=== PATIENT | male | born 1945 | race Two or more races ===

== ENCOUNTER 2017-07-21 13:26 | Emergency (ER) | payer OTHER ==
[~2017-07-21] VITALS: Ht 165.1 cm; Wt 63.5 kg
[~2017-07-21 13:26] MED LIST: COLACE100 MG ORAL; FEOSOL325 MG ORAL; LEVAQUIN500 MG ORAL; NIFEDICAL XL30 MG ORAL; PROTONIX40 MG ORAL; TRAMADOL HCL50 MG ORAL; UNOBMED
[2017-07-21 14:17] VITALS: BP 114/55
[2017-07-21 14:22] LABS: BASOPHILS % (AUTO) 0.7 % (0.0-2.0); EOSINOPHILS % (AUTO) 2.1 % (0.0-3.0); LYMPHOCYTES % (AUTO) 13.7 % (20.0-45.0); MEAN CORPUSCULAR HEMOGLOBIN 31.1 PG (27.0-31.0); MEAN CORPUSCULAR HGB CONC 31.3 G/DL (32.0-36.0); MEAN CORPUSCULAR VOLUME 100 FL (80-99); MONOCYTES % (AUTO) 6.1 % (1.0-10.0); NEUTROPHILS % (AUTO) 77.4 % (45.0-75.0); PLATELET COUNT 191 K/UL (150-450); RED BLOOD COUNT 4.44 M/UL (4.70-6.10); RED CELL DISTRIBUTION WIDTH 11.7 % (11.6-14.8); WHITE BLOOD COUNT 9.5 K/UL (4.8-10.8)
[2017-07-21 14:29] LABS: ANION GAP 12 mmol/L (5-15); CALCIUM 9.3 MG/DL (8.5-10.1); CARBON DIOXIDE 24 MMOL/L (21-32); CHLORIDE 106 MMOL/L (98-107); CREATININE 2.6 MG/DL (0.55-1.30); POTASSIUM 4.1 MMOL/L (3.5-5.1); SODIUM 142 MMOL/L (136-145)
[2017-07-21] MEDS ORDERED: PROTONIX40 M2 GT (14:40)
[2017-07-21] MEDS ORDERED: HYDROCHLOROTHIA25 MG ORAL (14:40)
[2017-07-21] MEDS ORDERED: MEGESTROL ACETA40 MG PO (14:40)
[2017-07-21] MEDS ORDERED: LISINOPRIL40 MG ORAL (14:40)
[2017-07-21] MEDS ORDERED: PLAVIX75 MG ORAL (14:40)
[2017-07-21] MEDS ORDERED: ATORVASTATIN CA40 MG ORAL (14:40)
[2017-07-21] MEDS ORDERED: NORVASC5 MG ORAL (14:40)
[2017-07-21 14:42] LABS: ALANINE AMINOTRANSFERASE 9 U/L (12-78); ALBUMIN/GLOBULIN RATIO 1.1 (1.0-2.7); ASPARTATE AMINO TRANSFERASE 17 U/L (15-37); CKMB 1.6 NG/ML (0.0-3.6); LIPASE 89 U/L (73-393); TOTAL PROTEIN 8.1 G/DL (6.4-8.2)
--- NOTE | 2017-07-21 15:27 | Emergency Room Report ---
History of Present Illness General Chief Complaint: Flu Like Symptoms Source: Patient Present Illness HPI 71-year-old male presents ED for evaluation. Patient states he is having cough and cold symptoms for the last 3 days. Also complaining of chest pain. Midsternal, 8/10, sharp, worse with coughing. Denies fevers or chills. Denies shortness of breath. Denies sick contacts or recent travel. No other aggravating relieving factors. 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 Hx Hypertension: Yes Hx Pacemaker: No Hx Asthma: No Hx COPD: No Hx Diabetes: No Hx Cancer: No Hx Gastrointestinal Problems: No Hx Dialysis: No Hx Neurological Problems: No Hx Cerebrovascular Accident: No Hx Seizures: No Hx Dizziness: Yes Review of Systems All Other Systems: negative except mentioned in HPI Physical Exam Vital Signs Date Time Temp Pulse Resp B/P (MAP) Pulse Ox O2 Delivery O2 Flow Rate FiO2 07/21/17 13:38 97.2 78 24 122/83 98 Room Air Sp02 EP Interpretation: reviewed, normal General Appearance: no apparent distress, alert, GCS 15, non-toxic Head: normocephalic, atraumatic Eyes: bilateral eye normal inspection, bilateral eye PERRL ENT: hearing grossly normal, normal pharynx, no angioedema, normal voice Neck: full range of motion, supple/symm/no masses Respiratory: chest non-tender, lungs clear, normal breath sounds, speaking full sentences Cardiovascular #1: regular rate, rhythm, no edema Cardiovascular #2: 2+ carotid (R), 2+ carotid (L), 2+ radial (R), 2+ radial (L) , 2+ dorsalis pedis (R), 2+ dorsalis pedis (L) Gastrointestinal: normal bowel sounds, non tender, soft, non-distended, no guarding, no rebound Rectal: deferred Genitourinary: normal inspection, no CVA tenderness Musculoskeletal: back normal, gait/station normal, normal range of motion, non- tender Neurologic: alert, oriented x3, responsive, motor strength/tone normal, sensory intact, speech normal Psychiatric: judgement/insight normal, memory normal, mood/affect normal, no suicidal/homicidal ideation Reflexes: 3+ bicep (R), 3+ bicep (L), 3+ tricep (R), 3+ tricep (L), 3+ knee (R) , 3+ knee (L) Skin: normal color, no rash, warm/dry, well hydrated Lymphatic: no adenopathy Medical Decision Making Diagnostic Impression: Primary Impression: Pneumonia Qualified Codes: J18.9 - Pneumonia, unspecified organism Additional Impressions: CKD (chronic kidney disease) Qualified Codes: N18.9 - Chronic kidney disease, unspecified ACS (acute coronary syndrome) ER Course Hospital Course 71-year-old M presenting to ED with cough, CP, chills Differential diagnoses include: Pneumonia, CHF exacerbation, pneumothorax, fluid overload Clinical course Patient placed on stretcher. On bleach packer with stable vitals. After initial history and physical, I ordered labs, IV fluids, EKG, chest x-ray, blood cultures, UA. Labs - no leukocytosis noted, hemoglobin/hematocrit stable, BUN/Cr elevated, lactate okay, troponins negative, BUN 1299, influenza negative CXR - hyperinflated lungs. atelectasis EKG - bifasciular block, no acute ischemic changes abx given. aspirin given Because of insurance patient will be transferred I feel this is a highly complex case requiring extensive working including EKG/ Rhythm strip, Xray/CT/US, Blood/urine lab work, repeat exams while in ED, and administration of strong opiates/narcotics for pain control, admission to hospital or close patient follow up. Diagnosis - pneumonia, CKD, ACS Transferred in serious condition Labs Test 07/21/17 14:00 White Blood Count 9.5 K/UL (4.8-10.8) Red Blood Count 4.44 M/UL (4.70-6.10) Hemoglobin 13.8 G/DL (14.2-18.0) Hematocrit 44.2 % (42.0-52.0) Mean Corpuscular Volume 100 FL (80-99) Mean Corpuscular Hemoglobin 31.1 PG (27.0-31.0) Mean Corpuscular Hemoglobin Concent 31.3 G/DL (32.0-36.0) Red Cell Distribution Width 11.7 % (11.6-14.8) Platelet Count 191 K/UL (150-450) Mean Platelet Volume 9.0 FL (6.5-10.1) Neutrophils (%) (Auto) 77.4 % (45.0-75.0) Lymphocytes (%) (Auto) 13.7 % (20.0-45.0) Monocytes (%) (Auto) 6.1 % (1.0-10.0) Eosinophils (%) (Auto) 2.1 % (0.0-3.0) Basophils (%) (Auto) 0.7 % (0.0-2.0) Sodium Level 142 MMOL/L (136-145) Potassium Level 4.1 MMOL/L (3.5-5.1) Chloride Level 106 MMOL/L (98-107) Carbon Dioxide Level 24 MMOL/L (21-32) Anion Gap 12 mmol/L (5-15) Blood Urea Nitrogen 48 mg/dL (7-18) Creatinine 2.6 MG/DL (0.55-1.30) Estimat Glomerular Filtration Rate mL/min (>60) Glucose Level 109 MG/DL (74-106) Lactic Acid Level 1.70 mmol/L (0.66-2.22) Calcium Level 9.3 MG/DL (8.5-10.1) Total Bilirubin 0.6 MG/DL (0.2-1.0) Aspartate Amino Transf (AST/SGOT) 17 U/L (15-37) Alanine Aminotransferase (ALT/SGPT) 9 U/L (12-78) Alkaline Phosphatase 109 U/L (46-116) Total Creatine Kinase 52 U/L (26-308) Creatine Kinase MB 1.6 NG/ML (0.0-3.6) Creatine Kinase MB Relative Index 3.0 Troponin I 0.008 ng/mL (0.000-0.056) Pro-B-Type Natriuretic Peptide 1299 pg/mL (0-125) Total Protein 8.1 G/DL (6.4-8.2) Albumin 4.2 G/DL (3.4-5.0) Globulin 3.9 g/dL Albumin/Globulin Ratio 1.1 (1.0-2.7) Lipase 89 U/L (73-393) EKG Diagnostic Results Rate: normal Rhythm: NSR ST Segments: no acute changes ASA given to the pt in ED: Yes Rhythm Strip Diag. Results EP Interpretation: yes Rhythm: NSR, no PVC's, no ectopy Chest X-Ray Diagnostic Results Chest X-Ray Diagnostic Results : Chest X-Ray Ordered: Yes # of Views/Limited/Complete: 1 View Indication: Chest Pain EP Interpretation: Yes Interpretation: no consolidation, no effusion, no pneumothorax, no acute cardiopulmonary disease Impression: Other - hyperinflated lungs. Electronically Signed by: Electronically signed by Delfino Velasco MD Last Vital Signs Date Time Temp Pulse Resp B/P (MAP) Pulse Ox O2 Delivery O2 Flow Rate FiO2 07/21/17 14:17 97.2 73 24 114/55 97 Room Air Status: improved Disposition: [facility]FER [facility] Condition: Serious Referrals: [facility],REFERRING (PCP) DELFINO VELASCO M.D. Jul 21, 2017 15:27
[2017-07-21 16:13] VITALS: BP 122/68
[2017-07-21 16:50] VITALS: BP 122/68
--- NOTE | 2017-07-22 09:36 | Diagnostic Imaging Report ---
Indication: Chest pain Technique: XRAY CHEST 1 V Comparison: 12/12/15 Findings: Cardiomediastinal silhouette is stable. There is pulmonary hyperinflation. There is no gross consolidation or pleural effusion. Degenerative changes of the spine are seen. Atherosclerotic changes are noted. Impression: No obvious acute cardiopulmonary disease. Pulmonary hyperinflation suggestive of underlying chronic obstructive pulmonary disease. Clinical correlation recommended.
--- NOTE | 2017-07-22 15:29 | Cardiology Report ---
APPROVED REPORT EKG Measurement Heart [id number] Normal sinus rhythm Pulmonary disease pattern Left anterior fascicular block Abnormal ECG
== END 2017-07-21 16:50 | disposition short-term general hospital (02) ==
LOC: EMR 14:00
DX: J18.9 Pneumonia, unspecified organism (principal); I12.9 Hypertensive chronic kidney disease with stage 1 through stage 4 chronic kidney disease, or unspecified chronic kidney disease; N18.9 Chronic kidney disease, unspecified; I24.9 Acute ischemic heart disease, unspecified
CPT/HCPCS: 36415; 71010; 80053; 82550; 82553; 83605; 83690; 83880; 84484; 85025; 86710; 87040; 93005; 96374; 99285; J1956